=== PATIENT | male | born 1950 | race Caucasian/White ===

== ENCOUNTER → 2017-07-26 | Outpatient (CLI) | payer OTHER | LOC: RAD 14:08 | DX: J18.9 Pneumonia, unspecified organism (principal); Z85.820 Personal history of malignant melanoma of skin ==

== ENCOUNTER → 2018-08-01 | Outpatient (CLI) | payer OTHER | LOC: RAD 14:04 | DX: J84.10 Pulmonary fibrosis, unspecified (principal); Z85.820 Personal history of malignant melanoma of skin ==

== ENCOUNTER → 2019-08-31 | Outpatient (CLI) | payer OTHER | LOC: RAD 14:25 | DX: Z08 Encounter for follow-up examination after completed treatment for malignant neoplasm (principal); Z85.820 Personal history of malignant melanoma of skin ==

== ENCOUNTER → 2021-09-18 | Outpatient (CLI) | payer OTHER | LOC: RAD 14:01 | DX: D22.72 Melanocytic nevi of left lower limb, including hip (principal); D23.9 Other benign neoplasm of skin, unspecified; D22.39 Melanocytic nevi of other parts of face; D18.01 Hemangioma of skin and subcutaneous tissue; L82.1 Other seborrheic keratosis; L81.4 Other melanin hyperpigmentation; L57.0 Actinic keratosis; Z08 Encounter for follow-up examination after completed treatment for malignant neoplasm; Z85.820 Personal history of malignant melanoma of skin; Z85.828 Personal history of other malignant neoplasm of skin ==